=== PATIENT | female | born 1980 | race Caucasian/White ===

== ENCOUNTER 2019-03-12 07:00 | Outpatient (REF) | payer MEDICAID, SELFPAY ==
--- NOTE | 2019-03-12 11:30 | PAPFT_PTH ---
PATIENT: Maureen Olivera LOC: [facility] U#:[id number] AGE/SX: 38/F ROOM: RE03/12/[address]: Peri Hernández : 1980 BED: DIS: 03/12/2019 SPEC #: [id number] RECD: 03/15/19 13:04 STATUS: CHRISTY REEric #: [id number] FAVIOLA: 03/12/19 11:[address]: Peri Hernández DEPT: [facility] Cytology RECD BY: Marry Strickland ENTERED: 03/15/19 13:04 SP TYPE: PAPFT OTHR DR: Cristhian Corrales Tissues: 1 - CX/ENDOCX FOR PAP SMEARS Procedures: PAP THIN PREP/[facility] Screening HPV DNA PROBE Comments: [id number] (CHLAMYDIA/GC)
[2019-03-16 13:45] LABS: Chlamydia Result Negative; GC Result Negative; Specimen Description SEE COMMENTS
[2019-04-09 16:02] LABS: Misc Referral (UVM) See Comments
== END 2019-03-12 07:20 ==
LOC: NCHCN 07:00
PROVIDERS: Visit Provider Family Medicine
DX: Z11.3 Encounter for screening for infections with a predominantly sexual mode of transmission (principal); Z12.4 Encounter for screening for malignant neoplasm of cervix; Z11.51 Encounter for screening for human papillomavirus (HPV); R87.619 Unspecified abnormal cytological findings in specimens from cervix uteri
CPT/HCPCS: 87491; 87591; 87624; 87625; 88142

== ENCOUNTER 2020-11-22 12:25 | Outpatient (REF) | payer MEDICAID, SELFPAY ==
--- NOTE | 2020-11-22 11:20 | PAPFT_PTH ---
PATIENT: Maureen Olivera LOC: [facility]#:[id number] AGE/SX: 40/F ROOM: RE11/22/[address]: Peri Hernández : 1980 BED: DIS: 11/22/2020 SPEC #: [id number] RECD: 11/23/20 12:57 STATUS: CHRISTY REEric #: [id number] FAVIOLA: 11/22/20 11:[address]: Peri Hernnádez DEPT: [facility] Cytology RECD BY: Marry Strickland ENTERED: 11/23/20 12:57 SP TYPE: PAPFT OTHR DR: Cristhian Corrales Tissues: 1 - CX/ENDOCX FOR PAP SMEARS Procedures: PAP THIN PREP/[facility] Screening HPV DNA PROBE Comments: [id number] (CHLAMYDIA/GC) (HPV 16 & 18/45)
[2020-11-27 21:02] LABS: Chlamydia Result Negative (Negative); GC Result Negative (Negative)
== END 2020-11-22 12:26 | disposition home or self-care (01) ==
LOC: NCHCN 12:25
PROVIDERS: Visit Provider Family Medicine
DX: Z11.3 Encounter for screening for infections with a predominantly sexual mode of transmission (principal); Z12.4 Encounter for screening for malignant neoplasm of cervix; Z11.51 Encounter for screening for human papillomavirus (HPV); R87.810 Cervical high risk human papillomavirus (HPV) DNA test positive
CPT/HCPCS: 87491; 87591; 88142; 87624

== ENCOUNTER 2022-03-06 11:19 | Outpatient (REF) | payer MEDICAID, SELFPAY ==
--- NOTE | 2022-03-06 14:45 | PAPFT_PTH ---
PATIENT: Maureen Olivera LOC: [facility] U#:[id number] AGE/SX: 41/F ROOM: RE03/06/[address]: Peri Hernández : 1980 BED: DIS: 03/07/2022 SPEC #: [id number] RECD: 03/07/22 12:51 STATUS: CHRISTY REQ #: [id number] FAVIOLA: 03/06/22 14:[address]: Peri Hernández DEPT: [facility] Cytology RECD BY: Marry Strickland ENTERED: 03/07/22 12:52 SP TYPE: PAPFT OTHR DR: Cristhian Corrales Tissues: 1 - CX/ENDOCX FOR PAP SMEARS Procedures: PAP THIN PREP/[facility] Screening HPV DNA PROBE Comments: [id number] (CHLAMYDIA/GC) (HPV 16 7 18/45)
[2022-03-08 14:07] LABS: Chlamydia Result Negative (Negative); GC Result Negative (Negative)
== END 2022-03-07 11:08 | disposition home or self-care (01) ==
LOC: NCHCN 11:19
PROVIDERS: Visit Provider Family Medicine
DX: Z11.3 Encounter for screening for infections with a predominantly sexual mode of transmission (principal); Z12.4 Encounter for screening for malignant neoplasm of cervix; Z11.51 Encounter for screening for human papillomavirus (HPV); R87.810 Cervical high risk human papillomavirus (HPV) DNA test positive
CPT/HCPCS: 87491; 87591; 88142; 87624

== ENCOUNTER 2023-04-16 16:39 | Outpatient (REF) | payer MEDICAID, SELFPAY ==
[2023-04-18 14:15] LABS: Chlamydia Result Negative (Negative); GC Result Negative (Negative)
== END 2023-04-16 16:40 | disposition home or self-care (01) ==
LOC: NCHCN 16:39
PROVIDERS: Visit Provider Nurse Practitioner Family
DX: Z11.3 Encounter for screening for infections with a predominantly sexual mode of transmission (principal)
CPT/HCPCS: 87491; 87591